=== PATIENT | male | born 1995 | race Caucasian/White ===

== ENCOUNTER 2017-05-09 12:46 | Emergency (ER) | payer MEDICAID ==
[~2017-05-09] VITALS: Ht 182.9 cm; Wt 100.0 kg
[2017-05-09] MEDS ORDERED: PERTUSS(ACELL),DIPH,TET VAC/PF 0.5 ML VIAL IM ONE (14:45)
[2017-05-09] MEDS ORDERED: IBUPROFEN 800 MG TABLET PO ONE (14:45)
[2017-05-09] MEDS ORDERED: LIDOCAINE HCL BUFFERED 1% 20 ML VIAL INJ ONE (14:45)
[2017-05-09] MEDS ORDERED: POVIDONE-IODINE 10% 15 ML SOLUTION UD TP ONE (15:15)
[2017-05-09] MEDS ORDERED: BACITRACIN 0.9 GM PACKET OINTMENT TP ONE (15:45)
[2017-05-09 15:53] VITALS: BP 122/78
== END 2017-05-09 15:53 | disposition home or self-care (01) ==
LOC: EMS 12:48
DX: S51.812A Laceration without foreign body of left forearm, initial encounter (principal); W45.8XXA Other foreign body or object entering through skin, initial encounter; Y93.89 Activity, other specified; Y92.89 Other specified places as the place of occurrence of the external cause; Y99.8 Other external cause status
CPT/HCPCS: 12004; 90471; 90715; 99284; J3490